=== PATIENT | female | born 1985 | race Caucasian/White ===

== ENCOUNTER 2016-11-01 02:47 | Emergency (ER) | payer OTHER ==
[~2016-11-01] VITALS: Ht 157.5 cm; Wt 49.9 kg
--- NOTE | 2016-11-01 03:06 | NUR ---
31 YO FEMALE BB BOYFRIEND. PT IS ALERT X 3, C/O COLD SWEATS. PT AMBULATED TO ER BED 8 WITH STEADY GAIT, SKIN COOL, DIAPHORETIC. 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 PT DENIES ANY DRUG USE TODAY. AWAITING ORDERS FROM PROVIDER
[2016-11-01] MEDS ORDERED: IV NS 0.9% 1,000 ML ONE (03:28)
[2016-11-01] MEDS ORDERED: IV SET PRIMARY 1 EA INFUS.SET MC ONE (03:28)
[2016-11-01] MEDS ORDERED: IV NS 0.9% 1,000 ML BAG IV ONE (03:30)
--- NOTE | 2016-11-01 03:40 | NUR ---
PT RETURNED FROM CT VIA GURNEY BY RADIOLOGY TEAM
--- NOTE | 2016-11-01 03:41 | NUR ---
BG 95. NOTIFIED
--- NOTE | 2016-11-01 03:41 | NUR ---
PT IS SHIVERING, FEELS COOL TO THE TOUCH, AND IS DIAPHORETIC. PT REC'D WARM BLANKETS.
[2016-11-01 04:13] LABS: BASOPHILS % (AUTO) 0.4 % (0.0-2.0); EOSINOPHILS # (AUTO) 0.1 /CMM (0.0-0.7); EOSINOPHILS % (AUTO) 1.2 % (0.0-6.0); HEMATOCRIT 42 % (33-45); LYMPHOCYTES # (AUTO) 3.4 /CMM (0.8-4.8); LYMPHOCYTES % (AUTO) 47.7 % (20.0-44.0); MEAN CORPUSCULAR HEMOGLOBIN 31 PG (26.0-33.0); MEAN CORPUSCULAR HGB CONC 33 g/dl (31.0-36.0); MEAN CORPUSCULAR VOLUME 94 fL (82-100); MONOCYTES # (AUTO) 0.5 /CMM (0.1-1.30); MONOCYTES % (AUTO) 7.3 % (2.0-12.0); NEUTROPHILS # (AUTO) 3.1 /CMM (1.8-8.9); NEUTROPHILS % (AUTO) 43.4 % (43.0-81.0); PLATELET COUNT (AUTO) 179 /CMM (150-450); RDW COEFFICIENT OF VARIATION 14.4 (11.5-15.0); RED BLOOD CELL COUNT(AUTO) 4.51 MIL/uL (4.0-5.2); WHITE BLOOD COUNT (AUTO) 7.1 K/uL (4.3-11.0)
--- NOTE | 2016-11-01 04:16 | NUR ---
PT WAS MOVED FROM BED #8 TO BED #3.
[2016-11-01 04:32] LABS: ALANINE AMINOTRANSFERASE 28 U/L (12-78); ALBUMIN 4.8 g/dL (3.4-5.0); ALKALINE PHOSPHATASE 38 U/L (46-116); ASPARTATE AMINOTRANSFERASE 25 U/L (15-37); BILIRUBIN,DIRECT 0.1 mg/dL (0.0-0.2); BILIRUBIN,TOTAL 0.3 mg/dL (0.2-1.0); CALCIUM, SERUM 9.4 mg/dL (8.5-10.1); CARBON DIOXIDE 31 mmol/L (21-32); CHLORIDE 104 mmol/L (98-107); CREATININE 0.9 mg/dL (0.6-1.3); GLUCOSE 104 mg/dL (74-106); POTASSIUM 3.3 mmol/L (3.5-5.1); SODIUM SERUM 144 mmol/L (136-145); TOTAL PROTEIN, SERUM 8.4 g/dL (6.4-8.2); UREA NITROGEN, BLOOD 25 mg/dL (7-18)
[2016-11-01 04:37] LABS: PREGNANCY TEST URINE QUAL NEGATIVE (NEGATIVE)
[2016-11-01 04:49] LABS: ACETAMINOPHEN 0 ug/ml (10-30); ALCOHOL, BLOOD < 3 mg/dL (0-0); SALICYLATE 1.8 mg/dL (2.8-20.0)
--- NOTE | 2016-11-01 05:10 | NUR ---
URINE SAMPLE SENT TO LAB.
[2016-11-01 05:27] LABS: THYROID STIMULATING HORMONE 3.665 uIU/mL (0.358-3.74)
[2016-11-01 05:29] LABS: APPEARANCE,URINE SL CLOUDY (CLEAR); BILIRUBIN,URINE NEGATIVE (NEGATIVE); BLOOD, URINE NEGATIVE Ery/uL (NEGATIVE); COLOR,URINE YELLOW (YELLOW); KETONES,URINE TRACE (NEGATIVE); LEUKOCYTE ESTERASE ,URINE NEGATIVE (NEGATIVE); NITRITE, URINE NEGATIVE (NEGATIVE); PROTEIN,URINE NEGATIVE (NEGATIVE); UGLUCOSE NEGATIVE (NEGATIVE); UROBILINOGEN,URINE 0.2 EU/dL (0.2)
[2016-11-01 05:41] LABS: BACTERIA,URINE 3+ /HPF (None Seen); RBC,URINE 0-2 /HPF (0-2); SQUAMOUS EPITHELIAL CELL,UR Moderate /HPF (None Seen); WBC,URINE 0-2 /HPF (0-3)
--- NOTE | 2016-11-01 05:50 | NUR ---
CALLING [facility]ES[facility]
--- NOTE | 2016-11-01 06:51 | NUR ---
PT ACCEPTED TO [facility] ER BY DR BARFIELD. # FOR REPORT [phone]. ETA FOR AMBULANCE 45-60 MIN
[2016-11-01 07:05] VITALS: BP 115/75
--- NOTE | 2016-11-01 07:06 | NUR ---
CALLING REPORT TO [facility] ER. NURSES ARE IN REPORT FOR CHANGE OF SHIFT. WILL CALL BACK IN 5 -10 MINS.
--- NOTE | 2016-11-01 07:15 | NUR ---
REPORT GIVEN TO MALIA DAVIS FOR [facility].
--- NOTE | 2016-11-01 07:16 | NUR ---
CALLING REPORT TO [facility].
--- NOTE | 2016-11-01 07:19 | NUR ---
REPORT GIVEN TO MALIA LAZO .
--- NOTE | 2016-11-01 07:46 | NUR ---
Patient was transferred to [facility] in stable condition. Written and verbal after care instructions given. Patient verbalizes understanding of instruction.
== END 2016-11-01 07:53 | disposition short-term general hospital (02) ==
LOC: ER 02:47
DX: T75.89XA Other specified effects of external causes, initial encounter (principal); E86.0 Dehydration; R61 Generalized hyperhidrosis; R51 Headache; R82.99 Other abnormal findings in urine; X58.XXXA Exposure to other specified factors, initial encounter; Y93.89 Activity, other specified; Y92.89 Other specified places as the place of occurrence of the external cause; Y99.8 Other external cause status
CPT/HCPCS: 36415; 70450; 71010; 80048; 80076; 80305; 80329; 81001; 82550; 82962; 83605; 84439; 84443; 84481; 84703; 85025; 87040 ×2; 87086; 87804; 93005; 96360; 99285; A4606; G0480 ×2; J7030; Z7610; 81000-TC; 87400